=== PATIENT | female | born 1965 | race Caucasian/White ===

== ENCOUNTER 2020-02-25 08:09 | Outpatient (CLI) | payer OTHER, SELFPAY ==
--- NOTE | ~2020-02-25 | CT_ITS ---
EXAMINATION: CT abdomen pelvis wo/w con DATE: 02/25/2020 09:00 INDICATION: Malignant neoplasm of the right kidney, except renal pelvis TECHNIQUE: Computed tomography (CT) of the abdomen was performed without intravenous contrast. CT of the abdomen and pelvis was then performed with a total of 130 mL Omnipaque 350 intravenous contrast u sing a double-bolus technique for simultaneous opacification of the renal parenchyma and renal collec ting system. The dose-length product (DLP) was 1037.52 mGy-cm. Automated exposure control and iterati ve reconstruction technique were employed. COMPARISON: 07/17/2019, 08/17/2018 FINDINGS: The lung bases are clear. The heart size is normal. The gallbladder is surgically absent. P unctate calcifications in an otherwise normal spleen likely represent healed granulomatous disease. T he liver, pancreas, and adrenal glands are normal. There are changes of right nephrectomy. Scarring i n the posterolateral aspect of the left kidney lower pole has a appearance of radiofrequency ablation change. No residual mass is identified. Stable cysts of the kidney measure up to 1.6 cm. There is no hydronephrosis or hydroureter. No stones are identified in the kidney, ureter, or the bladder. No pa thologically enlarged abdominal or pelvic lymph nodes are identified. There is no free intraperitonea l gas or evidence of bowel obstruction. There is mild lumbar spondylosis. IMPRESSION: 1. Stable scarring in the left kidney at the site of prior partial nephrectomy or radiofrequency abla tion without residual or recurrent neoplasm identified. Reviewed, dictated and finalized at location A. IMPRESSION: 1. Stable scarring in the left kidney at the site of prior partial nephrectomy or radiofrequency ablation without residual or recurrent neoplasm identified.
--- NOTE | ~2020-02-25 | XR_ITS ---
EXAMINATION: XR chest 2V 02/25/2020 08:36 INDICATION: Right renal neoplasm PROCEDURE: 2 view chest COMPARISON: Comparison to multiple prior studies sequentially, with oldest reviewed study dated 06/29. FINDINGS: The lungs are clear. There is evidence for chronic granulomatous disease. There is a right shoulder arthroplasty. The cardiomediastinal silhouette is within normal limits. There are no pleura l effusions. There is no pneumothorax suspected. No evidence for metastatic disease. IMPRESSION: 1: NO ACUTE CARDIOPULMONARY DISEASE. Reviewed, dictated and finalized at location A.
[2020-02-25 08:50] LABS: Estimated Glomerular Filt Rate > 60
== END 2020-02-25 08:10 | disposition home or self-care (01) ==
LOC: ANHIMG 08:17
PROVIDERS: Visit Provider Urology
DX: C64.1 Malignant neoplasm of right kidney, except renal pelvis (principal)
CPT/HCPCS: 36415; 71046; 74178; Q9967

== ENCOUNTER 2020-09-02 07:58 | Outpatient (CLI) | payer OTHER, SELFPAY ==
--- NOTE | ~2020-09-02 | XR_ITS ---
EXAMINATION: XR chest 2V 09/02/2020 08:39 INDICATION: Malignant neoplasm of the right kidney PROCEDURE: PA and lateral views of the chest COMPARISON: Comparison to multiple prior studies sequentially, with oldest reviewed study dated 11/2008. FINDINGS: The lungs are clear. The cardiomediastinal silhouette is within normal limits. There are no pleural effusions. There is no pneumothorax suspected. There is right shoulder arthroplasty. IMPRESSION: 1: NO ACUTE CARDIOPULMONARY DISEASE. Reviewed, dictated and finalized at location A. EE TASTER
--- NOTE | ~2020-09-02 | CT_ITS ---
EXAMINATION: CT abdomen pelvis wo/w con DATE: 09/02/2020 08:36 INDICATION: Malignant neoplasm of the right kidney. TECHNIQUE: Computed tomography (CT) of the abdomen and pelvis was performed without and with 100 cc O mnipaque 350 intravenous contrast. The dose-length product was 1284.09 mGy-cm. Automated exposure con trol and iterative reconstruction technique were employed. COMPARISON: Comparison to multiple prior studies sequentially, with oldest reviewed study dated 07/30. FINDINGS: There is right lower lobe atelectasis. There are calcified granulomas in the spleen. There are cholecystectomy clips. Status post right nephrectomy. There is a 3 mm nonobstructing left renal s tone. There is a left extrarenal pelvis. There are left renal cysts measuring up to 1.5 cm. Stable sc arring posterior lateral margin of the left kidney consistent with previous partial nephrectomy are r adiofrequency ablation. Status post cholecystectomy with expected prominence of the bile ducts. Nonob structive bowel gas pattern. Colonic diverticulosis without evidence for diverticulitis. 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 There are postoperative changes of the lumbosacral junction. No acute osseou s abnormality. Mild lumbar spondylosis. No free air or free fluid. IMPRESSION: 1. No evidence for residual/recurrent malignancy. Stable scarring left kidney. 2: Nonobstructing left nephrolithiasis. Reviewed, dictated and finalized at location A. E SCRUM COACH
[2020-09-02 08:26] LABS: Estimated Glomerular Filt Rate > 60
== END 2020-09-02 07:59 | disposition home or self-care (01) ==
PROVIDERS: Visit Provider Urology
DX: C64.1 Malignant neoplasm of right kidney, except renal pelvis (principal); N20.0 Calculus of kidney
CPT/HCPCS: 71046; 74178; Q9967

== ENCOUNTER 2020-12-24 11:53 | Emergency (ER) | payer OTHER, SELFPAY ==
[2020-12-24] VITALS (10 sets, daily range): BP systolic 109–135; BP diastolic 65–97; PULSE 68–96; RESP 18; TEMP 36.9; O2SAT 93–99
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
[2020-12-24] MEDS: ONDANSETRON INJ 4 MG/2 ML VIAL IV PUSH (12:14)
[2020-12-24] MEDS: HYDROmorphone HCL INJ (*CRX) 1 MG/ML SYR 0.5 MG IV PUSH (12:18)
[2020-12-24] MEDS: HYDROcodone/acetaminophen (*CRX) 7.5-325 MG TABLET 1 TAB PO (13:10)
[2020-12-24] MEDS: diazePAM (*CRX) 5 MG TABLET PO (13:10)
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
[2020-12-24 13:32] LABS: Basophils Absolute Auto 0.1 K/mm3 (0.0-0.1); Basophils Percent Auto 0.8 % (0.2-1.2); Eosinophils Absolute Auto 0.1 K/mm3 (0-0.3); Eosinophils Percent Auto 1.3 % (0-4.4); Hematocrit 37.1 % (37.0-47.0); Hemoglobin 11.8 g/dL (12.0-15.0); Immature Granulocyte Absolute 0.02 K/mm3 (0.00-0.031); Immature Granulocyte Percent A 0.2 % (0-0.5); Lymphocytes Absolute Auto 3.27 K/mm3 (0.9-3.2); Lymphocytes Percent Auto 37.3 % (18.3-44.2); Mean Corpuscular HGB Conc 31.8 g/dl (32-36); Mean Corpuscular Hemoglobin 27.3 pg (26-34); Mean Corpuscular Volume 85.7 fl (80-100); Mean Platelet Volume 11.3 fl (7.4-10.4); Monocytes Absolute Auto 0.7 K/mm3 (0.1-0.6); Monocytes Percent Auto 8.3 % (2.6-8.5); Neutrophils Absolute Auto 4.6 K/mm3 (1.3-6.7); Neutrophils Percent Auto 52.1 % (45.5-73.1); Platelet Count Result 330 k/mm3 (150-375); Red Blood Count 4.33 M/mm3 (4.2-5.4); Red Cell Distribution Width 16.6 % (11.5-14.5); White Blood Count 8.8 K/mm3 (4.5-10.0)
[2020-12-24 13:42] LABS: Prothrombin Time 13.3 Seconds (11.1-14.7)
[2020-12-24 13:43] LABS: Alanine Aminotransferase 16 U/L (4-35); Albumin Level 4.5 g/dL (3.5-5.1); Alkaline Phosphatase 155 U/L (38-126); Anion Gap 5 mmol/L (8-16); Aspartate Amino Transferase 25 U/L (14-36); Bilirubin,Total 0.2 mg/dL (0.2-1.3); Blood Urea Nitrogen 14 mg/dL (7-17); Calcium 9.9 mg/dL (8.4-10.2); Carbon Dioxide 33 mmol/L (22-30); Chloride 104 mmol/L (98-107); Estimated Glomerular Filt Rate > 60; Glucose 84 mg/dL (65-105); Partial Thromboplastin Time 29.7 SECONDS (22.3-36.8); Potassium 3.8 mmol/L (3.4-5.0); Sodium 142 mmol/L (137-145)
--- NOTE | 2020-12-24 15:41 | PC.NURSE ---
Report given to Sheila in the [facility] ED.
--- NOTE | 2020-12-24 18:29 | PC.NURSE ---
Abbot diaz called at 1539, with an eta of 1630, update at 1650 with an eta of 1700, we called for an update at 1718, eta is now 1820, called Torres hanson, 1725, with an eta of 30 min. cancelled Carlie at . also had checked with Ralph diazearlier 1550, no trucks for transport.
== END 2020-12-24 18:28 | disposition short-term general hospital (02) ==
PROVIDERS: Emergency Provider General Practice
DX: S32.031A Stable burst fracture of third lumbar vertebra, initial encounter for closed fracture (principal); S32.041A Stable burst fracture of fourth lumbar vertebra, initial encounter for closed fracture; V43.62XA Car passenger injured in collision with other type car in traffic accident, initial encounter
CPT/HCPCS: 36415; 70450; 71045; 72125; 72131; 80053; 85025; 85610; 85730; 96374; 96375; 99285; A9270; J1170; J2405

== ENCOUNTER 2021-03-16 13:26 | Outpatient (CLI) | payer OTHER, SELFPAY ==
--- NOTE | ~2021-03-16 | CT_ITS ---
EXAMINATION: CT abdomen pelvis wo/w con DATE: 03/16/2021 14:06 INDICATION: Malignant neoplasm of the right kidney except renal pelvis TECHNIQUE: Computed tomography (CT) of the abdomen was performed without intravenous contrast. CT of the abdomen and pelvis was then performed with a total of 100 mL Omnipaque 350 intravenous contrast. The dose-length product (DLP) was 718.79 mGy-cm. Automated exposure control and iterative reconstruct ion technique were employed. COMPARISON: 09/02/2020, 09/02/2020, 02/25/2020, 08/17/2018 FINDINGS: The lung bases are clear. The heart size is normal. The gallbladder is surgically absent. T here is mild enlargement of the common bile duct and central intrahepatic ducts which is likely due t o post cholecystectomy state. Changes of right nephrectomy are noted. Punctate calcifications in an o therwise normal spleen likely represent healed granulomatous disease. The liver, pancreas, and adrena l glands are normal. There are changes of partial nephrectomy for radiofrequency ablation at the late ral aspect of the left mid kidney. A 10 mm nodular area at the margin of the treatment site is stable since 2018 likely related to treatment change. Cysts of the left kidney measure up to 1.6 cm. There are also peripelvic cysts of the kidney. No pathologically enlarged abdominal or pelvic lymph nodes a re identified. There is no free intraperitoneal gas or evidence of bowel obstruction. There is mild l umbar spondylosis. IMPRESSION: 1. Stable scarring in the left kidney without evidence of residual or recurrent neoplasm Reviewed, dictated and finalized at location B.
--- NOTE | ~2021-03-16 | XR_ITS ---
EXAMINATION: XR chest 2V DATE: 03/16/2021 13:49 INDICATION: Malignant neoplasm of the right kidney except renal pelvis TECHNIQUE: Frontal and lateral views of the chest are obtained COMPARISON: 12/04/2020 FINDINGS: The lungs are free of acute opacities. There is no pleural effusion or pneumothorax. The ca rdiomediastinal silhouette is normal. There is moderate thoracic spondylosis. Changes of right total shoulder arthroplasty are noted. Cholecystectomy clips are present in the right upper quadrant. IMPRESSION: 1. No acute cardiopulmonary abnormality. Reviewed, dictated and finalized at location B.
[2021-03-16 13:59] LABS: Estimated Glomerular Filt Rate > 60
== END 2021-03-16 13:27 | disposition home or self-care (01) ==
LOC: ANHIMG 13:32
PROVIDERS: Visit Provider Urology
DX: C64.1 Malignant neoplasm of right kidney, except renal pelvis (principal)
CPT/HCPCS: 71046; 74178; Q9967

== ENCOUNTER 2021-10-07 09:06 | Outpatient (CLI) | payer OTHER, SELFPAY ==
--- NOTE | ~2021-10-07 | CT_ITS ---
EXAMINATION: CT abdomen pelvis wo/w con EXAM DATE: 10/07/2021 09:50 INDICATION: Malignant Neoplasm Of Right Kidney. TECHNIQUE: Spiral CT of the abdomen without contrast followed by both abdomen and pelvis with 100 cc intravenous Omnipaque 350. Axial, coronal and sagittal images of the abdomen and pelvis were reviewe d. The dose-length product (DLP) for this examination was 1097.67 mGy-cm. The exposure was tailored according to patient size (auto mA exposure control), and iterative reconstruction (ASIR) was used a s additional dose reduction technique. Comparison is made to prior examination from 03/16/2021. FINDINGS: Surgical changes from right-sided nephrectomy, unremarkable nephrectomy bed. There is a lef t renal peripelvic cyst measuring about 3 cm unchanged. Several other smaller cysts. No left hydronep hrosis. Left renal cortical scarring. The liver, spleen, adrenal glands and pancreas are unremarkable. Gallbladder is unremarkable. No bi liary obstruction. The uterus is unremarkable. The bladder is unremarkable. There is no retrope ritoneal or pelvic lymphadenopathy. There is mild scattered arteriosclerotic disease. The appendix is normal. Possible Niesen fundoplication. There is expected amount of colonic stool. No free intraperitoneal gas. The heart is normal in size. There are no pericardial or pleural ef fusions. The lung bases are unremarkable. There are no osteoblastic or osteolytic lesions identifie d. L3 and L4 treated burst fractures with only mild retropulsion unchanged. L5-S1 fusion. IMPRESSION: 1. Stable exam. Reviewed, dictated and finalized at location B. PATIAL SCIENTIST IMPRESSION: 1. Stable exam.
--- NOTE | ~2021-10-07 | XR_ITS ---
EXAMINATION: XR chest 2V EXAM DATE: 10/07/2021 09:30 INDICATION: Right kidney cancer. TECHNIQUE: Frontal and lateral projections of the chest obtained and reviewed. Comparison is made to prior examination from 03/16/2021. FINDINGS: The lungs are clear. There are no pleural effusions. The cardiomediastinal silhouette is within normal limits. There is no pneumothorax suspected. Right shoulder replacement. There are cho lecystectomy clips. IMPRESSION: No acute cardiopulmonary findings. Reviewed, dictated and finalized at location B. MING POOL SERVICEPERSON
[2021-10-07 09:41] LABS: Estimated Glomerular Filt Rate > 60
== END 2021-10-07 09:07 | disposition home or self-care (01) ==
PROVIDERS: Visit Provider Urology
DX: C64.1 Malignant neoplasm of right kidney, except renal pelvis (principal)
CPT/HCPCS: 71046; 74178; Q9967

== ENCOUNTER 2022-08-11 13:21 | Outpatient (CLI) | payer OTHER, SELFPAY ==
--- NOTE | ~2022-08-11 | CT_ITS ---
CT of the Abdomen and Pelvis: Indication: Malignant neoplasm of right kidney Technique: 5 mm axial scans were obtained through the abdomen and pelvis prior to and following intr avenous administration of 100 cc of Omnipaque 350. Dose reduction technique was used on this scan by utilizing automated exposure control and iterative reconstruction technique. The dose-length product (DLP) was 913.38 mGy-cm. COMPARISON: 10/07/2021 and 02/25/2020 Findings: Scans through the lung bases are unremarkable. There is a 1.9 cm mass at the peripheral aspect of left kidney (series 6 image 74) hours demonstrate enhancement by Hounsfield units, and is certainly increased in size since 02/25/2020. Additional left renal cyst the parapelvic region is unchanged. The liver, pancreas, adrenals and kidneys are within normal limits. Cholecystectomy clips are present . Calcified splenic granulomas noted. Patient is status post right nephrectomy. No evidence of aortic aneurysm. No lymphadenopathy. No bowel obstruction or bowel wall thickening. There is no evidence to suggest acute appendicitis. Images through the pelvis were performed. Urinary bladder unremarkable. No adnexal mass seen. No asci yanick. Chronic compression fractures of L3 and L4 present with vertebroplasty cement. Impression: 1.9 cm peripheral left renal mass is increased in size since 02/25/2020, and appears to enhance. This is therefore suspicious for small renal cell carcinoma. Pre and postcontrast renal MR could be consid ered for additional imaging evaluation, as indicated. Status post right nephrectomy. Reviewed, dictated and finalized at location [] TABOUT CREW LEADER Impression: 1.9 cm peripheral left renal mass is increased in size since 02/25/2020, and danay ears to enhance. This is therefore suspicious for small renal cell carcinoma. P re and postcontrast renal MR could be considered for additional imaging evaluat ion, as indicated. Status post right nephrectomy.
--- NOTE | ~2022-08-11 | XR_ITS ---
EXAMINATION: XR chest 2V Exam Date/Time: 08/11/2022 13:35 FILTER WASHER AND PRESSER HISTORY: MALIGNANT NEOPLAMS OF RIGHT KIDNEY Comparison: 10/07/2021. RESULT: Lines, tubes, and devices: Right shoulder arthroplasty. Cholecystectomy clips. Lungs and pleura: Clear. Cardiomediastinal silhouette: Stable. Other: No acute osseous or upper abdominal finding. IMPRESSION: No acute cardiopulmonary process. Reviewed, dictated and finalized at location K. ER WASHER AND PRESSER
[2022-08-11 14:02] LABS: Estimated Glomerular Filt Rate > 60
== END 2022-08-11 13:22 | disposition home or self-care (01) ==
PROVIDERS: Visit Provider Urology
DX: C64.1 Malignant neoplasm of right kidney, except renal pelvis (principal)
CPT/HCPCS: 71046; 74178; Q9967